=== PATIENT | male | born 1955 | race Caucasian/White ===

== ENCOUNTER 2017-03-15 16:33 | Emergency (ER) | payer BC ==
[~2017-03-15] VITALS: Ht 175.3 cm; Wt 75.0 kg
[~2017-03-15 16:33] MED LIST: CREO1200 PO; PROT40TA PO; ZOLO50TA PO
[2017-03-15 16:35] VITALS: BP 170/90; PULSE 96; RESP 20; TEMP 98; O2SAT 97
[2017-03-15] MEDS ORDERED: SODIUM CHLOR 0.9% 1000 ML INJ 1,000 ML IV SCH (16:49)
[2017-03-15 16:58] VITALS: RESP 16; O2SAT 98
[2017-03-15] MEDS ORDERED: SODIUM CHLORIDE 0.9% FLUSH 10 ML FLUSH IV FLUSH PRN (17:00)
[2017-03-15] MEDS ORDERED: MORPHINE SULFATE 4 MG/ML INJ IV PUSH ONE ×2 (17:15→18:45)
[2017-03-15] MEDS ORDERED: ONDANSETRON HCL 4 MG/2 ML VIAL IV PUSH ONE (17:15)
--- NOTE | 2017-03-15 17:16 | PD ---
HPI Chief Complaint: Abdominal Pain Time Seen by Provider: 17:09 Travel History International Travel<30 days: No Contact w/Intl Traveler<30days: No Traveled to known affect area: No History of Present Illness HPI 61-year-old male presents to the emergency department for evaluation of left- sided abdominal pain that has been ongoing for several weeks, but worsened in the past 24-48 hours. The patient states he has history of small bowel instruction earlier this year in [facility]. He has a surgeon in [place] that he followed up with, but no intervention was needed at that time. The patient reports history of pancreatic cancer with Whipple in 2010. He had small bowel injection earlier [place], but denies any other abdominal history. Patient states he had an NG tube, but did not need surgery after the small bowel structure. The patient reports history of diabetes, hyperlipidemia. Patient states that he has been drinking alcohol for the past 3 months to help him cope with his pain. He reports drinking a 6 pack today. The patient states he also smokes 2-3 packs of cigarettes daily. PFSH Past Medical History Blood Disorders: No Cancer: Yes (PANCREATIC 2010) Cardiovascular Problems: No High Cholesterol: No Endocrine: No Gastrointestinal Disorders: Yes (ABNORMAL ABD CT SCAN PER PT AND PT. HAS JAUNDICE) GERD: Yes Genitourinary: No Hiatal Hernia: No Immune Disorder: No Musculoskeletal: Yes Neurologic: No Psychiatric: No Reproductive: No Respiratory: No Ulcer: No Past Surgical History Abdominal Surgery: Yes (LAP WHIPPLE) Cardiac Surgery: No Ear Surgery: No Endocrine Surgery: No Eye Surgery: No Genitourinary Surgery: No Gynecologic Surgery: No Oral Surgery: Yes (WISDOM TEETH) Thoracic Surgery: No Other Surgery: Yes (WHIPPLE, ENDOSCOPY, CYSTOSCOPY, COLONOSCPY) Social History Alcohol Use: Yes (WEEKLY) Tobacco Use: Yes (1 PPD) Substance Use: No Allergies-Medications (Allergen,Severity, Reaction): Coded Allergies: No Known Allergies (Verified , 06/19/12) Reported Meds & Prescriptions Reported Meds & Active Scripts Active Reported Milagros Polanco Pen Inj (Insulin Glargine) 300 Unit/Ml Pen 21 Units SQ HS Rosuvastatin (Rosuvastatin Calcium) 5 Mg Tab 5 Mg PO DAILY Polyethylene Glycol 3350 Powder (Polyethylene Glycol) 17 Gram Pow 17 Gm PO DAILY Glipizide 5 Mg Tab 5 Mg PO DAILY Take 30 minutes before a meal Review of Systems Except as stated in HPI: all other systems reviewed are Neg Physical Exam Narrative GENERAL: Well-nourished, well-developed male patient, afebrile SKIN: Focused skin assessment warm/dry. HEAD: Normocephalic. Atraumatic. EYES: No scleral icterus. No injection or drainage. NECK: Supple, trachea midline. No JVD or lymphadenopathy. CARDIOVASCULAR: Regular rate and rhythm without murmurs, gallops, or rubs. RESPIRATORY: Breath sounds equal bilaterally. No accessory muscle use. Lungs sounds are clear to auscultation. GASTROINTESTINAL: Abdomen soft and nondistended. Patient has tenderness over left upper and left lower quadrant. No palpable mass. MUSCULOSKELETAL: No cyanosis, or edema. BACK: Nontender without obvious deformity. No CVA tenderness. Data Data Last Documented VS Vital Signs Date Time Temp Pulse Resp B/P (MAP) Pulse Ox O2 Delivery O2 Flow Rate FiO2 03/15/17 18:54 17 03/15/17 17:56 97.8 90 153/86 (108) 97 Room Air Orders Orders Complete Blood Count With Diff (03/15/17 16:49) Comprehensive Metabolic Panel (03/15/17 16:49) Lipase (03/15/17 16:49) Prothrombin Time / Inr (Pt) (03/15/17 16:49) Act Partial Throm Time (Ptt) (03/15/17 16:49) Urinalysis - C+S If Indicated (03/15/17 16:49) Iv Access Insert/Monitor (03/15/17 16:49) Oximetry (03/15/17 16:49) NPO (03/15/17 16:49) Sodium Chlor 0.9% 1000 Ml Inj (Ns 1000 M (03/15/17 16:49) Sodium Chloride 0.9% Flush (Ns Flush) (03/15/17 17:00) Alcohol (Ethanol) (03/15/17 17:02) Morphine Inj (Morphine Inj) (03/15/17 17:15) Ondansetron Inj (Zofran Inj) (03/15/17 17:15) Ct Abd/Pel W Iv Contrast(Rout) (03/15/17 17:23) Oral Contrast - Adult (03/15/17 17:23) Diatrizoate Liq ( Gastrovon Liq) (03/15/17 17:25) Oral Contrast - Adult (03/15/17 17:30) Morphine Inj (Morphine Inj) (03/15/17 18:45) Iohexol 350 Inj (Omnipaque 350 Inj) (03/15/17 19:33) Labs Laboratory Tests Test 03/15/17 16:11 03/15/17 16:56 03/15/17 17:07 Ethyl Alcohol Level 172 MG/DL White Blood Count 8.6 TH/MM3 Red Blood Count 4.69 MIL/MM3 Hemoglobin 15.9 GM/DL Hematocrit 43.9 % Mean Corpuscular Volume 93.5 FL Mean Corpuscular Hemoglobin 33.9 PG Mean Corpuscular Hemoglobin Concent 36.3 % Red Cell Distribution Width 12.9 % Platelet Count 202 TH/MM3 Mean Platelet Volume 9.4 FL Neutrophils (%) (Auto) 65.2 % Lymphocytes (%) (Auto) 25.1 % Monocytes (%) (Auto) 7.9 % Eosinophils (%) (Auto) 1.4 % Basophils (%) (Auto) 0.4 % Neutrophils # (Auto) 5.6 TH/MM3 Lymphocytes # (Auto) 2.2 TH/MM3 Monocytes # (Auto) 0.7 TH/MM3 Eosinophils # (Auto) 0.1 TH/MM3 Basophils # (Auto) 0.0 TH/MM3 CBC Comment AUTO DIFF Differential Total Cells Counted 100 Neutrophils % (Manual) 62 % Band Neutrophils % 1 % Lymphocytes % 27 % Monocytes % 5 % Eosinophils % 3 % Basophils % 1 % Neutrophils # (Manual) 5.5 TH/MM3 Metamyelocytes 1 % Differential Comment FINAL DIFF MANUAL Platelet Estimate NORMAL Platelet Morphology Comment NORMAL Prothrombin Time 9.8 SEC Prothromb Time International Ratio 0.9 RATIO Activated Partial Thromboplast Time 27.1 SEC Blood Urea Nitrogen 5 MG/DL Creatinine 0.85 MG/DL Random Glucose 80 MG/DL Total Protein 8.0 GM/DL Albumin 3.6 GM/DL Calcium Level 8.6 MG/DL Alkaline Phosphatase 153 U/L Aspartate Amino Transf (AST/SGOT) 49 U/L Alanine Aminotransferase (ALT/SGPT) 55 U/L Total Bilirubin 0.2 MG/DL Sodium Level 135 MEQ/L Potassium Level 4.0 MEQ/L Chloride Level 102 MEQ/L Carbon Dioxide Level 26.5 MEQ/L Anion Gap 7 MEQ/L Estimat Glomerular Filtration Rate 92 ML/MIN Lipase 38 U/L Urine Color COLORLESS Urine Turbidity CLEAR Urine pH 5.0 Urine Specific [place] 1.002 Urine Protein NEG mg/dL Urine Glucose (UA) NEG mg/dL Urine Ketones NEG mg/dL Urine Occult Blood NEG Urine Nitrite NEG Urine Bilirubin NEG Urine Urobilinogen LESS THAN 2.0 MG/DL Urine Leukocyte Esterase NEG Urine RBC LESS THAN 1 /hpf Microscopic Urinalysis Comment CULT NOT INDICATED MDM Medical Decision Making Medical Screen Exam Complete: Yes Emergency Medical Condition: Yes Medical Record Reviewed: Yes Interpretation(s) ct abdomen/pelvis - CONCLUSION: 1. Postsurgical changes again noted status post Whipple procedure. The afferent loop remains prominent but unchanged from the prior study. The proximal small bowel is mildly prominent but stable as well. There is no free air or fluid. 2. Hepatic steatosis with no evidence of metastatic disease or definite recurrent tumor. 3. Mild diverticulosis. Differential Diagnosis Small bowel obstruction versus diverticulitis versus gastroenteritis Narrative Course 61-year-old male presents to the emergency department for evaluation of left- sided abdominal pain that has been worsening over the past 1-2 days. He has history of pancreas cancer with Whipple procedure and small bowel obstruction. CBC, CMP, lipase, PTT, PT/INR, UA are ordered and pending. CT the abdomen/ pelvis with IV contrast is ordered and pending. Patient is given normal saline 1 L IV bolus, morphine 4 mg IV, Zofran 4 mg IV. CBC shows no acute abnormality. CMP shows elevated AST of 49, alkaline phosphatase 153. Lipase is 38. Coags are unremarkable. UA is negative for infection. Alcohol level is 172. CT abdomen/pelvis shows Postsurgical changes again noted status post Whipple procedure. The afferent loop remains prominent but unchanged from the prior study. The proximal small bowel is mildly prominent but stable as well. There is no free air or fluid; 2. Hepatic steatosis with no evidence of metastatic disease or definite recurrent tumor; 3. Mild diverticulosis. Findings were discussed with patient is instructed to follow-up with his primary care physician. He is instructed to cut down on his drinking. He will be discharged with a prescription for Protonix to take daily. The patient verbalizes agreement and understanding. My attending physician, Dr. Guevara, is aware of all findings and spoke with patient as well. The patient was discharged in stable condition with instructions, including return instructions and follow up instructions. Diagnosis Primary Impression: Abdominal pain Qualified Codes: R10.9 - Unspecified abdominal pain Referrals: Primary Care Physician call for appointment Patient Instructions: Abdominal Pain (ED), General Instructions Additional Instructions: Take Protonix daily as directed. Follow-up with your primary care physician. Return to the emergency department for any acute worsening of symptoms. Med/Other Pt SpecificInfo: Prescription(s) given Scripts Pantoprazole (Protonix) 40 Mg Tab 40 MG PO DAILY for Reflux, #30 TAB 0 Refills Prov: Pat Banuelos 03/15/17 Disposition: 01 DISCHARGE HOME Condition: Stable Pat Banuelos Mar 15, 2017 17:16
[2017-03-15] MEDS ORDERED: GLIP5TAB8 PO (17:17)
[2017-03-15] MEDS ORDERED: POLY17S PO (17:17)
[2017-03-15] MEDS ORDERED: ROSU1TAB4 PO (17:17)
[2017-03-15] MEDS ORDERED: INSU1.2I SQ (17:17)
[2017-03-15] MEDS ORDERED: DIATRIZOATE MEGLUM/DIATRIZOATE SOD 9 ML CUP ONE (17:25)
[2017-03-15 17:29] LABS: AUTOMATED NEUTROPHIL # 5.6 TH/MM3 (1.8-7.7); BASOPHIL % 0.4 % (0.0-2.0); EOSINOPHIL # 0.1 TH/MM3 (0-0.4); EOSINOPHIL % 1.4 % (0.0-4.0); HEMATOCRIT 43.9 % (39.0-51.0); LYMPH % 25.1 % (9.0-44.0); LYMPHOCYTE # 2.2 TH/MM3 (1.0-4.8); MEAN CELL VOLUME 93.5 FL (80.0-100.0); MEAN CORPUSCULAR HEMOGLOBIN 33.9 PG (27.0-34.0); MONO % 7.9 % (0.0-8.0); NEUT % 65.2 % (16.0-70.0); PLATELET COUNT 202 TH/MM3 (150-450); RED BLOOD COUNT 4.69 MIL/MM3 (4.50-5.90); RED CELL DISTRIBUTION WIDTH 12.9 % (11.6-17.2); WHITE BLOOD COUNT 8.6 TH/MM3 (4.0-11.0)
[2017-03-15 17:32] LABS: HEMO FLAGS AUTO DIFF; MEAN CORPUSCULAR HGB CONC 36.3 % (32.0-36.0)
[2017-03-15 17:40] LABS: APTT (PATIENT) 27.1 SEC (24.3-30.1); INTERNATIONAL NORMALIZED RATIO 0.9 RATIO; PROTHROMBIN TIME - PATIENT 9.8 SEC (9.8-11.6)
[2017-03-15 17:44] LABS: BLOOD, URINE NEG (NEG); COMMENT (UR) CULT NOT INDICATED; CULTURE IF INDICATED CULT NOT INDICATED; GLUCOSE,URINE NEG (NEG); KETONE, URINE NEG (NEG); NITRITE,URINE NEG (NEG); URINE COLOR COLORLESS (YELLW/STRAW)
[2017-03-15 17:47] LABS: ALT (GPT) 55 U/L (12-78); ANION GAP 7 MEQ/L (5-15); AST (GOT) 49 U/L (15-37); BICARBONATE 26.5 MEQ/L (21.0-32.0); BLOOD UREA NITROGEN 5 MG/DL (7-18); CHLORIDE 102 MEQ/L (98-107); GLOMERULAR FILTRATION RATE 92 ML/MIN (>89); SODIUM (NA) 135 MEQ/L (136-145)
[2017-03-15 17:49] LABS: ALKALINE PHOSPHATASE 153 U/L (45-117); TOTAL BILIRUBIN ADULT 0.2 MG/DL (0.2-1.0)
[2017-03-15 17:56] VITALS: BP 153/86; PULSE 90; RESP 17; TEMP 97.8; O2SAT 97
[2017-03-15 18:14] LABS: BANDS 1 % (0-6); BASOPHILS 1 % (0-2); EOSINOPHILS 3 % (0-4); METAMYELOCYTES 1 % (0-1); NEUTROPHIL # MANUAL DIFF 5.5 TH/MM3 (1.8-7.7); PLATELET ESTIMATE SMEAR NORMAL (NORMAL); PLATELET MORPHOLOGY NORMAL (NORMAL); POLYS (SEG NEUTROPHILS) 62 % (16-70); SCAN/DIFF FINAL DIFF MANUAL; WBC DIFF SAMPLE 100
[2017-03-15 18:54] VITALS: RESP 17
[2017-03-15] MEDS ORDERED: IOHEXOL 350 MG/ML 10 ML VIAL (for RAD DIAG) IVCONTRAST ONE (19:33)
--- NOTE | 2017-03-15 20:36 | RADRPT ---
EXAM DATE/TIME: 03/15/2017 19:30 [facility] COMPARISON: CT ABDOMEN & PELVIS W CONTRAST, January 10, 2012, 18:24. INDICATIONS : Abdominal pain; possible obstruction. IV CONTRAST: 94 cc Omnipaque 350 (iohexol) IV ORAL CONTRAST: Prescribed oral contrast ingested. RADIATION DOSE: 7.16 CTDIvol (mGy) MEDICAL HISTORY : Pancreatic carcinoma SURGICAL HISTORY : Whipple ENCOUNTER: Initial ACUITY: 1 day PAIN SCALE: 8/10 LOCATION: abdomen TECHNIQUE: Volumetric scanning of the abdomen and pelvis was performed. Using automated exposure control and ad justment of the mA and/or kV according to patient size, radiation dose was kept as low as reasonably achievable to obtain optimal diagnostic quality images. DICOM format image data is available electro nically for review and comparison. FINDINGS: LOWER LUNGS: The visualized lower lungs are clear. LIVER: Homogeneous density without lesion. There is no dilation of the biliary tree. Status post cholecyste ctomy. There is diffuse fatty infiltration of the liver. SPLEEN: Normal size without lesion. PANCREAS: Status post Whipple procedure. The tail the pancreas remains unremarkable. KIDNEYS: Normal in size and shape. There is no mass, stone or hydronephrosis. ADRENAL GLANDS: Within normal limits. VASCULAR: There is no aortic aneurysm. BOWEL/MESENTERY: Postsurgical changes are again noted status post Whipple procedure with anastomotic sutures again not ed in the pyloric region of the stomach. The efferent loop remains prominent but is not significantly changed compared to the prior study. The proximal small bowel remains mildly prominent but unchanged as well. Contrast is noted in the colon and there is a normal appendix. There are scattered divertic cassie. There is no free air or fluid. ABDOMINAL WALL: Within normal limits. RETROPERITONEUM: There is no lymphadenopathy. BLADDER: No wall thickening or mass. REPRODUCTIVE: Within normal limits. INGUINAL: There is no lymphadenopathy or hernia. MUSCULOSKELETAL: Within normal limits for patient age. CONCLUSION: 1. Postsurgical changes again noted status post Whipple procedure. The afferent loop remains prominen t but unchanged from the prior study. The proximal small bowel is mildly prominent but stable as well . There is no free air or fluid. 2. Hepatic steatosis with no evidence of metastatic disease or definite recurrent tumor. 3. Mild diverticulosis. Dashawn Winn MD on March 15, 2017 at 20:25 Board Certified Radiologist. This report was verified electronically.
[2017-03-15] MEDS ORDERED: PROT40TA PO (20:55)
== END 2017-03-15 21:15 | disposition home or self-care (01) ==
LOC: NEPE 16:33
DX: R10.9 Unspecified abdominal pain (principal); K76.0 Fatty (change of) liver, not elsewhere classified; F17.200 Nicotine dependence, unspecified, uncomplicated; E78.5 Hyperlipidemia, unspecified; E11.9 Type 2 diabetes mellitus without complications; Z79.84 Long term (current) use of oral hypoglycemic drugs; Z85.07 Personal history of malignant neoplasm of pancreas; Z90.411 Acquired partial absence of pancreas
CPT/HCPCS: 74177; 80053; 80307; 81001; 83690; 85007; 85027; 85610; 85730; 96361; 96374; 96375; 96376; 99285; J2270; J2405; J7030; Q9963; Q9967